=== PATIENT | female | born 1930 | race Caucasian/White ===

== ENCOUNTER 2018-07-10 12:48 | Inpatient (IN) | payer MEDICARE, OTHER ==
[2018-07-10 15:19] LABS: BASOPHILE ABSOLUTE 0.1 Th/cumm (0-0.2); EOSINOPHILE ABSOLUTE 0.3 Th/cmm (0.1-0.4); HEMATOCRIT 26.8 % (41.0-60); HEMOGLOBIN 8.7 gm/dL (12-16); MONOCYTE ABSOLUTE 0.9 Th/cmm (0.3-1.0)
[2018-07-10 15:41] LABS: % BASOPHILS 1.9 % (0.0-2.0); % EOSINOPHILS 4.3 % (0.0-5.0); % LYMPHOCYTES 24.3 % (20.0-50.0); % MONOCYTES 12.6 % (2.0-10.0); % NEUTROPHILS 56.9 % (40.0-80.0); LYMPHOCYTE ABSOLUTE 1.7 Th/cmm (1.5-3.0); MEAN CELL VOLUME 75.5 fl (81-100); MEAN CORPUSCULAR HEMOGLOBIN 24.5 pg (27.0-31.0); MEAN CORPUSCULAR HGB CONC 32.5 pg (28.0-36.0); NEUTROPHILE ABSOLUTE 3.9 Th/cmm (1.8-8.0); PLATELET COUNT 643 Th/cmm (150-400); RED BLOOD COUNT 3.56 Mil/cmm (3.80-5.20); RED CELL DISTRIBUTION WIDTH 16.9 % (11.5-20.0); WHITE BLOOD COUNT 6.9 Th/cmm (4.8-10.8)
[2018-07-10 15:55] LABS: ALB/GLOB RATIO 0.7 (1.0-1.8); ALBUMIN 3.3 gm/dL (3.7-5.3); ALKALINE PHOSPHATASE 79 U/L (34-104); ANION GAP 13.9 (7.0-16.0); BILIRUBIN,TOTAL 0.4 mg/dL (0.3-1.0); BUN - UREA NITROGEN 29 mg/dL (7-25); CALCIUM SERUM 8.9 mg/dL (8.6-10.3); CARBON DIOXIDE 27.1 mEq/L (21.0-31.0); CHLORIDE 92 mEq/L (98-107); CREATININE - SERUM 0.9 mg/dL (0.6-1.2); GLUCOSE 130 mg/dL (70-105); MAGNESIUM 1.9 mg/dL (1.9-2.7); PHOSPHOROUS 3.9 mg/dL (2.5-5.0); SGOT 24 U/L (13-39); SGPT/ALT 16 U/L (7-52); SODIUM SERUM 129 mEq/L (136-145)
[2018-07-10 16:48] LABS: ESR SEDIMENTATION SED RATE 145 mm/hr (0-30)
[2018-07-10] MEDS ORDERED: methylPREDNISolone SS 40 mg Vial ONE (17:08)
[2018-07-10 18:31] LABS: URINE SOURCE CATH
[2018-07-10 18:33] LABS: URINE BILIRUBIN NEGATIVE (NEGATIVE); URINE BLOOD LARGE (NEGATIVE); URINE GLUCOSE (UA) NEGATIVE (NEGATIVE); URINE KETONE NEGATIVE (NEGATIVE); URINE LEUKOCYTE ESTERASE LARGE (NEGATIVE); URINE MICROSCOPIC INDICATED? YES; URINE NITRATE POSITIVE (NEGATIVE); URINE PH 7.5 (4.6 - 8.0); URINE PROTEIN NEGATIVE (NEGATIVE); URINE UROBILINOGEN 0.2 E.U./dL (0.2 - 1.0)
[2018-07-10 18:40] LABS: URINE CLARITY CLOUDY (CLEAR); URINE COLOR YELLOW
[2018-07-10 18:41] LABS: URINE RBC 0-2 /hpf (0-5)
[2018-07-10 18:42] LABS: URINE BACTERIA MANY /hpf (NONE SEEN); URINE EPITHELIAL CELLS MODERATE /lpf (FEW)
[2018-07-10] MEDS ORDERED: Piperacillin Sodium/Tazobact 3.375 gm Vial IV ONE (18:56)
[2018-07-10] MEDS ORDERED: Dextrose 50% 50 mL Abboject IVP PRN (19:07)
[2018-07-10] MEDS ORDERED: GLUCAGON HCl 1 MG KIT IM PRN (19:07)
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
[2018-07-10] MEDS: Sodium Chloride 0.9% 1,000 ML IV SCH (22:04)
[2018-07-10] MEDS: INSULIN ASPART SLIDING SCALE 100 UNITS/ML UNIT SUBQ SCH (22:13)
[2018-07-10 22:28] VITALS: BP 123/69
[2018-07-11] MEDS ORDERED: Piperacillin Sodium/Tazobact 3.375 gm Vial IV ONE (04:30)
[2018-07-11] MEDS ORDERED: Albuterol Nebulizer 2.5mg/3mL HHN PRN (08:33)
[2018-07-11] MEDS ORDERED: Magnesium Hydroxide (MOM) 30 mL UDC PO PRN (08:33)
--- NOTE | 2018-07-11 08:46 | Diagnostic Imaging Report ---
Portable chest x-ray HISTORY: Shortness of breath The heart appears enlarged. Atherosclerotic calcification seen in the aorta. Generalized accentuation of the interstitial lung markings. The overall appearance suggests a chronic etiology. No focal processes. IMPRESSION: 1. Cardiomegaly with atherosclerotic vascular changes 2. Accentuation of the interstitial lung markings which appears chronic. No focal processes.
--- NOTE | 2018-07-11 08:50 | Diagnostic Imaging Report ---
Left first toe (3 views) HISTORY: Swelling Soft tissue swelling. Generalized osteoporosis. No definite acute abnormalities. No fractures. No definite plain radiographic evidence of osteomyelitis. Vascular calcification seen. IMPRESSION: 1. No definite acute focal bony abnormalities. Specifically, no definite plain radiographic evidence of osteomyelitis 2. Generalized osteoporosis 3. Extensive vascular calcification
--- NOTE | 2018-07-11 08:50 | Diagnostic Imaging Report ---
Right toes (3 views) HISTORY: Swelling Severe generalized osteoporosis. Evaluation of the joint space is limited due to flexion. No definite acute focal destructive bony changes. No fractures. Extensive vascular calcification noted. IMPRESSION: 1. No definite acute focal bony abnormalities 2. Severe generalized osteoporosis 3. Extensive vascular calcification
[2018-07-11] MEDS ORDERED: Non-Formulary Item 1 EA (Apixaban [Eliquis] 2.5 MG) PO SCH (09:00)
[2018-07-11] MEDS ORDERED: CALCIUM CARBONATE PO SCH (09:00)
[2018-07-11] MEDS ORDERED: [UNRECOGNIZED DRUG - OTHER] PO SCH (09:00)
[2018-07-11] MEDS ORDERED: VITAMIN D3 PO SCH (09:00)
--- NOTE | 2018-07-11 09:00 | History and Physical ---
History of Present Illness - HPI Chief Complaint: toe infection HPI: Patient was send from SNF for evaluation of toe infection. During ER evaluation was found UTI, Bilateral toe infection, and possible pneumonia. Vital Signs: Last Vital Signs Temp 97.7 F 07/11/18 05:00 Pulse 91 07/11/18 05:00 Resp 18 07/11/18 05:00 BP 124/67 07/11/18 05:00 Pulse Ox 100 07/11/18 05:00 Past Medical History Cardiovascular: Report: CAD Pulmonary: Report: COPD MANAGER OF HOSPITAL: Report: No Pertinent Hx GI: Report: No Pertinent Hx Psych: Report: No Pertinent Hx Musculoskeletal: Report: Weakness, Other (Fracture of left elbow and Fracture of left hip.) Rheumatologic: Report: No pertinent Hx Infectious Disease: Report: Other (Frequent UTI) Renal/: Report: No Pertinent Hx Endocrine: Report: Diabetes, Hypothyroidism Dermatology: Report: Cellulitis - Past Surgical History Past Surgical History: Other (Left elbow surgery repair, left hip fracture repair.) Family Medical History - Family Member Paternal Grandfather History Unknown: Yes Living Status: Hx Family Coronary Artery Disease: Yes Hx Family Stroke: Yes Social History Smoke: No Alcohol: None Drugs: None Lives: Custodial Domestic Violence: Negative - Medications Home Medications: Home Medication Medication Instructions Recorded Type Acetaminophen [Tylenol Extra 1,000 mg PO Q6HR PRN 07/10/18 History Strength] Acetaminophen [Tylenol] 650 mg PO Q6HR PRN 07/10/18 History Albuterol Nebulizer 2.5mg/3mL 2.5 mg IH Q4HR PRN 07/10/18 History [Albuterol Neb UD*] Apixaban [Eliquis] 2.5 mg PO BID 07/10/18 History Atorvastatin Calcium [Lipitor] 40 mg PO HS 07/10/18 History Bisacodyl [Dulcolax 10 Mg Supp] 10 mg RC DAILY PRN 07/10/18 History Calcium Carbonate/Vitamin D3 1 each PO DAILY 07/10/18 History [Calcium 500 + Vit D Caplet] Cyanocobalamin [Vitamin B12] 1,000 mcg PO DAILY 07/10/18 History Diltiazem HCl [Tiazac] 180 mg PO DAILY 07/10/18 History Fleet Enema 135 ml RC DAILY PRN 07/10/18 History Furosemide [Lasix] 40 mg PO BID 07/10/18 History Guaifenesin [Lisa-Tussin] 10 ml PO Q24H PRN 07/10/18 History Levothyroxine [Synthroid] 0.075 mg PO QDAC 07/10/18 History Loperamide [Imodium] 4 mg PO Q6H PRN 07/10/18 History Magnesium Hydroxide [Milk of 30 ml PO DAILY PRN 07/10/18 History Magnesia] Multivitamin [Theragran] 1 tab PO DAILY 07/10/18 History Potassium Chloride 1 cap PO DAILY 07/10/18 History - Allergies Allergies/Adverse Reactions: Allergies Allergy/AdvReac Type Severity Reaction Status Date / Time No Known Allergies Allergy Verified 07/10/18 13:51 Review of Systems - Review of Systems Constitutional: Report: Weakness Eyes: Report: No Significant ENT: Report: No Significant Respiratory: Report: Cough Cardiovascular: Report: No Significant Gastrointestinal: Report: No Significant Genitourinary: Report: No Significant Musculoskeletal: Report: Foot Pain Skin: Report: Other (Decubit ulcer) Neurological: Report: No Significant Physical Exam - Physical Exam HEENT: Report: Ears Nose Throat within normal limits Neck: Report: Within normal limits Cardiovascular Systems: Report: Regular, Rate and Rhythm Respiratory: Report: Crackles, Rhonchi Abdomen: Report: Non-tender to palpation Back: Report: Inspection of back is within normal limits. Extremities: Report: Other (Edema an redness of both toes.) Skin: Report: A wound was noted, Other (Left Decubit ulcer) - Lab Results All Lab Results last 24 hours: Laboratory Results - last 24 hr 07/10/18 07/10/18 07/10/18 15:10 15:10 15:10 WBC 6.9 RBC 3.56 L Hgb 8.7 L Hct 26.8 L MCV 75.5 L MCH 24.5 L MCHC Differential 32.5 RDW 16.9 Plt Count 643 H MPV 7.0 Neutrophils % 56.9 Lymphocytes % 24.3 Monocytes % 12.6 H Eosinophils % 4.3 Basophils % 1.9 ESR 145 H Sodium 129 L Potassium 4.0 Chloride 92 L Carbon Dioxide 27.1 Anion Gap 13.9 BUN 29 H Creatinine 0.9 Est GFR ( Amer) TNP Est GFR (Non-Af Amer) TNP BUN/Creatinine Ratio 32.2 Glucose 130 H POC Glucose Whole Bld Lactic Acid Calcium 8.9 Phosphorus 3.9 Magnesium 1.9 Total Bilirubin 0.4 AST 24 ALT 16 Alkaline Phosphatase 79 Total Protein 8.0 Albumin 3.3 L Globulin 4.7 Albumin/Globulin Ratio 0.7 L TSH 2.88 Urine Source Urine Color Urine Clarity Urine pH Ur Specific [place] Urine Protein Urine Glucose (UA) Urine Ketones Urine Blood Urine Nitrate Urine Bilirubin Urine Urobilinogen Ur Leukocyte Esterase Urine RBC Urine WBC Ur Epithelial Cells Urine Bacteria 07/10/18 07/10/18 07/10/18 15:10 17:51 21:07 WBC RBC Hgb Hct MCV MCH MCHC Differential RDW Plt Count MPV Neutrophils % Lymphocytes % Monocytes % Eosinophils % Basophils % ESR Sodium Potassium Chloride Carbon Dioxide Anion Gap BUN Creatinine Est GFR ( Amer) Est GFR (Non-Af Amer) BUN/Creatinine Ratio Glucose POC Glucose 335 H Whole Bld Lactic Acid 1.10 Calcium Phosphorus Magnesium Total Bilirubin AST ALT Alkaline Phosphatase Total Protein Albumin Globulin Albumin/Globulin Ratio TSH Urine Source CATH Urine Color YELLOW Urine Clarity CLOUDY H Urine pH 7.5 Ur Specific [place] 1.010 Urine Protein NEGATIVE Urine Glucose (UA) NEGATIVE Urine Ketones NEGATIVE Urine Blood LARGE H Urine Nitrate POSITIVE H Urine Bilirubin NEGATIVE Urine Urobilinogen 0.2 Ur Leukocyte Esterase LARGE H Urine RBC 0-2 Urine WBC 10-25 H Ur Epithelial Cells MODERATE Urine Bacteria MANY H 07/11/18 05:42 WBC RBC Hgb Hct MCV MCH MCHC Differential RDW Plt Count MPV Neutrophils % Lymphocytes % Monocytes % Eosinophils % Basophils % ESR Sodium Potassium Chloride Carbon Dioxide Anion Gap BUN Creatinine Est GFR ( Amer) Est GFR (Non-Af Amer) BUN/Creatinine Ratio Glucose POC Glucose 203 H Whole Bld Lactic Acid Calcium Phosphorus Magnesium Total Bilirubin AST ALT Alkaline Phosphatase Total Protein Albumin Globulin Albumin/Globulin Ratio TSH Urine Source Urine Color Urine Clarity Urine pH Ur Specific [place] Urine Protein Urine Glucose (UA) Urine Ketones Urine Blood Urine Nitrate Urine Bilirubin Urine Urobilinogen Ur Leukocyte Esterase Urine RBC Urine WBC Ur Epithelial Cells Urine Bacteria - Assessment Assessment: Patient is awake, alert, calm, in no acute distress. Dx: Cellulitis, Possible osteomyelitis, UTI, COPD, Anemia, Thrombocytosis, Hyponatremia, DM. - Plan Plan: Patient is in IV NS, IV AB, Wound care, contrinue with SNF meds, Consult with ID requested. Will continue to monitor.
[2018-07-11] MEDS: Diltiazem CD 180 mg C24 PO SCH (10:48)
[2018-07-11] MEDS: Multivitamin Tab PO SCH (10:50)
[2018-07-11] MEDS: INSULIN ASPART SLIDING SCALE 100 UNITS/ML UNIT SUBQ SCH (10:53)
[2018-07-11] MEDS: INSULIN LISPRO SLIDING SCALE 100 UNITS/ML UNIT SUBQ SCH ×3 (17:38→21:35)
[2018-07-11] MEDS: Albuterol Nebulizer 2.5mg/3mL HHN SCH ×5 (17:43→22:47)
[2018-07-12] MEDS: Albuterol Nebulizer 2.5mg/3mL HHN SCH ×6 (02:45→22:38)
[2018-07-12 08:12] LABS: HEMATOCRIT 23.9 % (41.0-60); MEAN CELL VOLUME 75.5 fl (81-100); MEAN CORPUSCULAR HEMOGLOBIN 24.5 pg (27.0-31.0); MEAN CORPUSCULAR HGB CONC 32.4 pg (28.0-36.0); MEAN PLATELET VOLUME 6.7 fl; PLATELET COUNT 490 Th/cmm (150-400); RED BLOOD COUNT 3.17 Mil/cmm (3.80-5.20); RED CELL DISTRIBUTION WIDTH 16.9 % (11.5-20.0)
[2018-07-12 08:18] LABS: HEMOGLOBIN 7.8 gm/dL (12-16)
[2018-07-12 08:24] LABS: ALB/GLOB RATIO 0.7 (1.0-1.8); ALBUMIN 2.7 gm/dL (3.7-5.3); ALKALINE PHOSPHATASE 76 U/L (34-104); ANION GAP 12.4 (7.0-16.0); BILIRUBIN,TOTAL 0.3 mg/dL (0.3-1.0); BUN - UREA NITROGEN 30 mg/dL (7-25); CALCIUM SERUM 8.3 mg/dL (8.6-10.3); CARBON DIOXIDE 27.9 mEq/L (21.0-31.0); CHLORIDE 95 mEq/L (98-107); CREATININE - SERUM 0.9 mg/dL (0.6-1.2); GLUCOSE 159 mg/dL (70-105); POTASSIUM SERUM 3.3 mEq/L (3.5-5.1); SGOT 15 U/L (13-39); SGPT/ALT 11 U/L (7-52); SODIUM SERUM 132 mEq/L (136-145); TOTAL PROTEIN,SERUM 6.4 gm/dL (6.0-8.3)
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
[2018-07-12] MEDS: INSULIN LISPRO SLIDING SCALE 100 UNITS/ML UNIT SUBQ SCH ×4 (09:35→21:13)
[2018-07-12] MEDS: Diltiazem CD 180 mg C24 PO SCH (09:48)
[2018-07-12] MEDS: Multivitamin Tab PO SCH (09:48)
[2018-07-12] MEDS: Levothyroxine 0.075 Mg Tab PO SCH (09:48)
[2018-07-12 10:09] LABS: BAND NEUTROPHILE 3 % (0-10); BASOPHIL 0 % (0-3); EOSINOPHIL 1 % (0-5); LYMPHOCYTE 8 % (20-50); MONOCYTE 4 % (2-10); NEUTROPHILS 84 % (40-80)
[2018-07-12 10:10] LABS: HYPOCHROMIA 2+; PLATELET ESTIMATE INCREASED PLATELETS (NORMAL)
[2018-07-12 10:11] LABS: ANISOCYTOSIS 1+
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
[2018-07-13] MEDS: Albuterol Nebulizer 2.5mg/3mL HHN SCH ×6 (02:27→23:10)
[2018-07-13 05:53] LABS: HEMATOCRIT 24.6 % (41.0-60); MEAN CORPUSCULAR HEMOGLOBIN 24.1 pg (27.0-31.0); MEAN CORPUSCULAR HGB CONC 31.8 pg (28.0-36.0); MEAN PLATELET VOLUME 6.9 fl; PLATELET COUNT 535 Th/cmm (150-400); RED BLOOD COUNT 3.23 Mil/cmm (3.80-5.20); RED CELL DISTRIBUTION WIDTH 17.4 % (11.5-20.0); WHITE BLOOD COUNT 6.7 Th/cmm (4.8-10.8)
[2018-07-13 06:00] LABS: HEMOGLOBIN 7.8 gm/dL (12-16)
[2018-07-13 06:08] LABS: ALB/GLOB RATIO 0.8 (1.0-1.8); ALBUMIN 2.8 gm/dL (3.7-5.3); ALKALINE PHOSPHATASE 69 U/L (34-104); BILIRUBIN,TOTAL 0.3 mg/dL (0.3-1.0); BUN - UREA NITROGEN 24 mg/dL (7-25); CALCIUM SERUM 8.4 mg/dL (8.6-10.3); CARBON DIOXIDE 26.6 mEq/L (21.0-31.0); CHLORIDE 98 mEq/L (98-107); CREATININE - SERUM 0.9 mg/dL (0.6-1.2); GLUCOSE 158 mg/dL (70-105); POTASSIUM SERUM 3.6 mEq/L (3.5-5.1); SGOT 16 U/L (13-39); SGPT/ALT 12 U/L (7-52); SODIUM SERUM 132 mEq/L (136-145); TOTAL PROTEIN,SERUM 6.5 gm/dL (6.0-8.3)
[2018-07-13 07:35] LABS: BAND NEUTROPHILE 1 % (0-10); BASOPHIL 0 % (0-3); EOSINOPHIL 5 % (0-5); LYMPHOCYTE 29 % (20-50); MONOCYTE 14 % (2-10); NEUTROPHILS 51 % (40-80)
[2018-07-13 07:36] LABS: PLATELET ESTIMATE INCREASED PLATELETS (NORMAL)
[2018-07-13] MEDS: Levothyroxine 0.075 Mg Tab PO SCH (08:35)
[2018-07-13] MEDS: Multivitamin Tab PO SCH (08:35)
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
--- NOTE | 2018-07-13 08:55 | Diagnostic Imaging Report ---
Renal ultrasound HISTORY: Hydronephrosis, pyelonephritis. COMPARISON: None Technique: Sonography of the kidneys and urinary bladder was performed in multiple planes. FINDINGS: The right kidney measures 9.3 x 4.4 cm. No evidence of focal lesions or hydronephrosis. The left kidney measures 7.9 x 4.7 cm. The renal margins are not well-defined, however, no evidence of focal lesions or hydronephrosis. There is mild increased echogenicity of the kidneys. A Smith catheter is noted within underdistended urinary bladder, limiting its evaluation. IMPRESSION: No evidence of hydronephrosis. Mild increased echogenicity of the kidneys which may be due to medical renal disease.
[2018-07-13] MEDS: INSULIN LISPRO SLIDING SCALE 100 UNITS/ML UNIT SUBQ SCH ×5 (09:03→21:09)
--- NOTE | 2018-07-13 09:03 | Diagnostic Imaging Report ---
Bilateral lower extremity arterial Doppler study HISTORY: Peripheral arterial disease COMPARISON: None Technique: Longitudinal and transverse sonographic images of the bilateral lower extremity arteries were obtained with doppler analysis. FINDINGS: Exam of the right lower extremity demonstrates generalized biphasic flow with moderate atherosclerotic vascular disease. Decreased velocities seen distally within the right dorsalis pedis artery. Right SHANTHI is 1.1 Exam of the left side demonstrates triphasic and biphasic flow with biphasic flow primarily seen distally with decreased velocity the left dorsalis pedis artery at 14.1 cm/second. Moderate atherosclerotic vascular disease is noted. Left SHANTHI is 1.3. IMPRESSION: Moderate generalized atherosclerotic vascular disease. No sonographic evidence of occlusion. Please correlate clinically.
[2018-07-13] MEDS: Diltiazem CD 180 mg C24 PO SCH ×2 (09:04→17:51)
--- NOTE | 2018-07-13 09:08 | Diagnostic Imaging Report ---
Nuclear medicine bone scan History: Osteomyelitis of the toes Comparison: Bilateral toe x-rays on 07/10/2018 Technique/procedure: 26.1 minutes of technetium 99 MDP was administered intravenously. Flow, blood pool, and delayed images of bilateral lower extremities were obtained. Flow images demonstrate mild increased uptake throughout the right foot with more focalized increased uptake seen along the bilateral forefoot regions. Blood flow images also demonstrate more focalized uptake along the bilateral forefoot regions. Delayed images demonstrate slight uptake along the bilateral forefoot regions. IMPRESSION: Areas of uptake seen on flow and blood pole images along the bilateral forefoot regions/toes. There is also slight delayed uptake, however this is equivocal. There is probable cellulitis in this region. Osteomyelitis is less likely but cannot be completely excluded. If there is continued clinical concern for osteomyelitis MRI of this region is recommended.
[2018-07-13] MEDS: Sodium Chloride 0.9% 1,000 ML IV SCH (19:30)
[2018-07-14] MEDS: Albuterol Nebulizer 2.5mg/3mL HHN SCH ×6 (03:09→23:43)
[2018-07-14 05:55] LABS: BASOPHILE ABSOLUTE 0.1 Th/cumm (0-0.2); EOSINOPHILE ABSOLUTE 0.6 Th/cmm (0.1-0.4); HEMATOCRIT 24.3 % (41.0-60); LYMPHOCYTE ABSOLUTE 1.7 Th/cmm (1.5-3.0); MEAN CELL VOLUME 75.6 fl (81-100); MEAN CORPUSCULAR HEMOGLOBIN 24.9 pg (27.0-31.0); MEAN CORPUSCULAR HGB CONC 32.9 pg (28.0-36.0); MEAN PLATELET VOLUME 7.4 fl; MONOCYTE ABSOLUTE 1.6 Th/cmm (0.3-1.0); NEUTROPHILE ABSOLUTE 3.9 Th/cmm (1.8-8.0); PLATELET COUNT 403 Th/cmm (150-400); RED BLOOD COUNT 3.21 Mil/cmm (3.80-5.20); WHITE BLOOD COUNT 7.9 Th/cmm (4.8-10.8)
[2018-07-14] MEDS: Levothyroxine 0.075 Mg Tab PO SCH (06:56)
[2018-07-14] MEDS: INSULIN LISPRO SLIDING SCALE 100 UNITS/ML UNIT SUBQ SCH ×2 (06:57→21:24)
[2018-07-14 07:58] LABS: BAND NEUTROPHILE 2 % (0-10); NEUTROPHILS 63 % (40-80)
[2018-07-14 07:59] LABS: BASOPHIL 0 % (0-3); EOSINOPHIL 0 % (0-5); LYMPHOCYTE 25 % (20-50); MONOCYTE 10 % (2-10)
[2018-07-14 08:25] LABS: ALB/GLOB RATIO 0.8 (1.0-1.8); ALBUMIN 2.8 gm/dL (3.7-5.3); ALKALINE PHOSPHATASE 63 U/L (34-104); ANION GAP 12.7 (7.0-16.0); BILIRUBIN,TOTAL 0.3 mg/dL (0.3-1.0); BUN - UREA NITROGEN 16 mg/dL (7-25); CALCIUM SERUM 8.3 mg/dL (8.6-10.3); CARBON DIOXIDE 24.7 mEq/L (21.0-31.0); CHLORIDE 98 mEq/L (98-107); CREATININE - SERUM 0.8 mg/dL (0.6-1.2); GLUCOSE 136 mg/dL (70-105); POTASSIUM SERUM 3.4 mEq/L (3.5-5.1); SGOT 15 U/L (13-39); SGPT/ALT 10 U/L (7-52); SODIUM SERUM 132 mEq/L (136-145); TOTAL PROTEIN,SERUM 6.3 gm/dL (6.0-8.3)
[2018-07-14] MEDS ORDERED: KCL 20mEq/100mL Premix 20 MEQ/100 ML PIGGYBACK IV ONE (08:46)
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
[2018-07-14] MEDS: Diltiazem CD 180 mg C24 PO SCH (09:30)
[2018-07-14] MEDS: Multivitamin Tab PO SCH (10:17)
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
[2018-07-14] MEDS: Sodium Chloride 0.9% 1,000 ML IV SCH (23:19)
[2018-07-15] MEDS: Albuterol Nebulizer 2.5mg/3mL HHN SCH ×6 (03:00→22:52)
[2018-07-15 06:37] LABS: % BASOPHILS 1.9 % (0.0-2.0); % EOSINOPHILS 8.1 % (0.0-5.0); % MONOCYTES 14.1 % (2.0-10.0); % NEUTROPHILS 52.9 % (40.0-80.0); BASOPHILE ABSOLUTE 0.1 Th/cumm (0-0.2); EOSINOPHILE ABSOLUTE 0.6 Th/cmm (0.1-0.4); HEMATOCRIT 25.4 % (41.0-60); HEMOGLOBIN 8.3 gm/dL (12-16); LYMPHOCYTE ABSOLUTE 1.6 Th/cmm (1.5-3.0); MEAN CELL VOLUME 74.7 fl (81-100); MEAN CORPUSCULAR HEMOGLOBIN 24.3 pg (27.0-31.0); MEAN CORPUSCULAR HGB CONC 32.6 pg (28.0-36.0); MEAN PLATELET VOLUME 6.8 fl; NEUTROPHILE ABSOLUTE 3.6 Th/cmm (1.8-8.0); PLATELET COUNT 503 Th/cmm (150-400); RED CELL DISTRIBUTION WIDTH 17.1 % (11.5-20.0); WHITE BLOOD COUNT 6.9 Th/cmm (4.8-10.8)
[2018-07-15] MEDS: INSULIN LISPRO SLIDING SCALE 100 UNITS/ML UNIT SUBQ SCH ×4 (06:43→20:23)
[2018-07-15] MEDS: Levothyroxine 0.075 Mg Tab PO SCH (06:44)
[2018-07-15 06:51] LABS: ALB/GLOB RATIO 0.8 (1.0-1.8); ALBUMIN 2.8 gm/dL (3.7-5.3); ALKALINE PHOSPHATASE 62 U/L (34-104); ANION GAP 11.1 (7.0-16.0); BILIRUBIN,TOTAL 0.4 mg/dL (0.3-1.0); BUN - UREA NITROGEN 19 mg/dL (7-25); CALCIUM SERUM 8.4 mg/dL (8.6-10.3); CARBON DIOXIDE 27.5 mEq/L (21.0-31.0); CHLORIDE 98 mEq/L (98-107); CREATININE - SERUM 0.9 mg/dL (0.6-1.2); GLUCOSE 122 mg/dL (70-105); POTASSIUM SERUM 3.6 mEq/L (3.5-5.1); SGOT 18 U/L (13-39); SGPT/ALT 11 U/L (7-52); SODIUM SERUM 133 mEq/L (136-145); TOTAL PROTEIN,SERUM 6.3 gm/dL (6.0-8.3)
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
[2018-07-15] MEDS: Diltiazem CD 180 mg C24 PO SCH (09:12)
[2018-07-15] MEDS: Multivitamin Tab PO SCH (09:13)
--- NOTE | 2018-07-15 11:25 | Discharge Summary ---
General Discharge Summary - Discharge Summary Date of Admission: 07/10/18 Admitting Diagnosis: Bilateral toe infection, UTI, Possible PNA Discharge Date: 07/15/18 Discharge Diagnosis: Cellulitis of toe, UTI, COPD, PVD, Anemia, Thrombocytosis, Hyponatremia, DM Laboratory Findings: Laboratory Results - last 24 hr 07/14/18 07/14/18 07/14/18 11:44 17:04 18:39 WBC RBC Hgb Hct MCV MCH MCHC Differential RDW Plt Count MPV Neutrophils % Lymphocytes % Monocytes % Eosinophils % Basophils % Sodium Potassium Chloride Carbon Dioxide Anion Gap BUN Creatinine Est GFR ( Amer) Est GFR (Non-Af Amer) BUN/Creatinine Ratio Glucose POC Glucose 177 H 242 H 164 H Calcium Total Bilirubin AST ALT Alkaline Phosphatase Total Protein Albumin Globulin Albumin/Globulin Ratio 07/14/18 07/15/18 07/15/18 21:19 06:05 06:05 WBC 6.9 RBC 3.40 L Hgb 8.3 L Hct 25.4 L MCV 74.7 L MCH 24.3 L MCHC Differential 32.6 RDW 17.1 Plt Count 503 H MPV 6.8 Neutrophils % 52.9 Lymphocytes % 23.0 Monocytes % 14.1 H Eosinophils % 8.1 H Basophils % 1.9 Sodium 133 L Potassium 3.6 Chloride 98 Carbon Dioxide 27.5 Anion Gap 11.1 BUN 19 Creatinine 0.9 Est GFR ( Amer) TNP Est GFR (Non-Af Amer) TNP BUN/Creatinine Ratio 21.1 Glucose 122 H POC Glucose 180 H Calcium 8.4 L Total Bilirubin 0.4 AST 18 ALT 11 Alkaline Phosphatase 62 Total Protein 6.3 Albumin 2.8 L Globulin 3.5 Albumin/Globulin Ratio 0.8 L 07/15/18 06:43 WBC RBC Hgb Hct MCV MCH MCHC Differential RDW Plt Count MPV Neutrophils % Lymphocytes % Monocytes % Eosinophils % Basophils % Sodium Potassium Chloride Carbon Dioxide Anion Gap BUN Creatinine Est GFR ( Amer) Est GFR (Non-Af Amer) BUN/Creatinine Ratio Glucose POC Glucose 113 H Calcium Total Bilirubin AST ALT Alkaline Phosphatase Total Protein Albumin Globulin Albumin/Globulin Ratio Hospital Course: Patient responded to treatment infection improved, respiration improved, anemia stable, Hyponatremia and thrombocytosis improved. Treatment: Patient received IV NS, IV AB, continue with SNF Meds. Patient was follow by ID. Patient was transferred to [facility] to continue with treatment. Condition at Discharge: Stable Disposition: Other Care (other hosp) Home Medications: Home Medication Medication Instructions Recorded Type Acetaminophen [Tylenol Extra 1,000 mg PO Q6HR PRN 07/10/18 History Strength] Acetaminophen [Tylenol] 650 mg PO Q6HR PRN 07/10/18 History Albuterol Nebulizer 2.5mg/3mL 2.5 mg IH Q4HR PRN 07/10/18 History [Albuterol Neb UD*] Apixaban [Eliquis] 2.5 mg PO BID 07/10/18 History Atorvastatin Calcium [Lipitor] 40 mg PO HS 07/10/18 History Bisacodyl [Dulcolax 10 Mg Supp] 10 mg RC DAILY PRN 07/10/18 History Calcium Carbonate/Vitamin D3 1 each PO DAILY 07/10/18 History [Calcium 500 + Vit D Caplet] Cyanocobalamin [Vitamin B12] 1,000 mcg PO DAILY 07/10/18 History Diltiazem HCl [Tiazac] 180 mg PO DAILY 07/10/18 History Fleet Enema 135 ml RC DAILY PRN 07/10/18 History Furosemide [Lasix] 40 mg PO BID 07/10/18 History Guaifenesin [Lisa-Tussin] 10 ml PO Q24H PRN 07/10/18 History Levothyroxine [Synthroid] 0.075 mg PO QDAC 07/10/18 History Loperamide [Imodium] 4 mg PO Q6H PRN 07/10/18 History Magnesium Hydroxide [Milk of 30 ml PO DAILY PRN 07/10/18 History Magnesia] Multivitamin [Theragran] 1 tab PO DAILY 07/10/18 History Potassium Chloride 1 cap PO DAILY 07/10/18 History Inpatient Medications: Current Medications Acetaminophen (Tylenol) 650 mg PO Q6HR PRN PRN Reason: Pain (Mild) Stop: 09/09/18 08:32 Last Admin: 07/14/18 21:58 Dose: 650 mg Albuterol Sulfate (Albuterol 2.5mg/3ml Neb Ud) 2.5 mg HHN Q4HRT [facility] Stop: 09/09/18 08:59 Last Admin: 07/15/18 07:40 Dose: 2.5 mg Atorvastatin Calcium (Lipitor) 40 mg PO HS [facility] Stop: 09/09/18 20:59 Last Admin: 07/14/18 21:24 Dose: 40 mg Bisacodyl (Dulcolax 10 Mg Supp) 10 mg RC DAILY PRN PRN Reason: IF MOM INEFFECTIVE Stop: 09/09/18 08:32 Cyanocobalamin (Vitamin B12) 1,000 mcg PO DAILY [facility] Stop: 09/09/18 08:59 Last Admin: 07/15/18 09:13 Dose: 1,000 mcg Dextrose (D50w) 50 ml IVP PRN PRN PRN Reason: BS below 70 & not tolerate po Stop: 09/08/18 19:06 Dextrose (Glutose 40%) 18.75 gm PO PRN PRN PRN Reason: Blood Glucose less than 70 Stop: 09/08/18 19:06 Diltiazem HCl (Cardizem Cd) 180 mg PO DAILY [facility] Stop: 09/09/18 08:59 Last Admin: 07/15/18 09:12 Dose: 180 mg Furosemide (Lasix) 40 mg PO BID [facility] Stop: 09/09/18 08:59 Last Admin: 07/15/18 09:13 Dose: 40 mg Glucagon (Glucagen) 1 mg IM PRN PRN PRN Reason: Blood Glucose less than 70 Stop: 09/08/18 19:06 Sodium Chloride (Nacl 0.9%) 1,000 mls @ 70 mls/hr IV .[id number] [facility] Stop: 09/08/18 19:14 Last Admin: 07/14/18 23:19 Dose: 70 mls/hr Piperacillin Sod/Tazobactam (Sod 3.375 gm/ Sodium Chloride) 50 mls @ 100 mls/ hr IV Q8HR [facility] Stop: 09/08/18 20:59 Last Admin: 07/15/18 05:00 Dose: 50 mls/hr Vancomycin HCl 1 gm/ Sodium (Chloride) 250 mls @ 165 mls/hr IV Q24H [facility] Stop: 09/09/18 08:59 Last Infusion: 07/14/18 16:27 Dose: Infused Insulin Human Lispro (Humalog Insulin Sliding Scale) 0 units SUBQ ACHS [facility]; Protocol Stop: 09/08/18 11:29 Last Admin: 07/15/18 06:43 Dose: Not Given Levothyroxine Sodium (Synthroid) 0.075 mg PO QDAC [facility] Stop: 09/10/18 07:29 Last Admin: 07/15/18 06:44 Dose: 0.075 mg Magnesium Hydroxide (Milk Of Magnesia) 30 ml PO DAILY PRN PRN Reason: Constipation Stop: 09/09/18 08:32 Miscellaneous (Vancomycin Iv Per Pharmacy) 1 ea MC PRN PRN PRN Reason: PROTOCOL Stop: 09/09/18 08:59 Miscellaneous (Clinical Monitoring) 1 ea MC DAILY PRN PRN Reason: RENAL DOSING- XARELTO Stop: 09/12/18 16:44 Multivitamins/Vitamin C (Theragran) 1 tab PO DAILY [facility] Stop: 09/09/18 08:59 Last Admin: 07/15/18 09:13 Dose: 1 tab Rivaroxaban (Xarelto) 10 mg PO DAILY [facility] Stop: 09/12/18 16:59 Last Admin: 07/15/18 09:13 Dose: 10 mg Activity: Bed Rest Consults and Follow-Up: DIANE YAO [Other] not on staff,PCP is [Primary Care Provider] - Consulting Speciality: Other (ID and vascular surgeon.)
== END 2018-07-16 00:10 | DRG 602 ==
LOC: ER 12:48 → MSI 20:32 → TELE 07-13
PROVIDERS: ADMIT General Practice; ATTEND General Practice
DX: L03.032 Cellulitis of left toe (principal); E41 Nutritional marasmus; N39.0 Urinary tract infection, site not specified; E87.1 Hypo-osmolality and hyponatremia; L03.116 Cellulitis of left lower limb; E44.1 Mild protein-calorie malnutrition; E11.51 Type 2 diabetes mellitus with diabetic peripheral angiopathy without gangrene; E11.621 Type 2 diabetes mellitus with foot ulcer; J44.9 Chronic obstructive pulmonary disease, unspecified; D47.3 Essential (hemorrhagic) thrombocythemia; L89.892 Pressure ulcer of other site, stage 2; D64.9 Anemia, unspecified; I25.10 Atherosclerotic heart disease of native coronary artery without angina pectoris; E03.9 Hypothyroidism, unspecified; I48.91 Unspecified atrial fibrillation; F03.90 Unspecified dementia, unspecified severity, without behavioral disturbance, psychotic disturbance, mood disturbance, and anxiety; R13.10 Dysphagia, unspecified; R31.9 Hematuria, unspecified; E78.5 Hyperlipidemia, unspecified; E11.649 Type 2 diabetes mellitus with hypoglycemia without coma; Z82.49 Family history of ischemic heart disease and other diseases of the circulatory system; Z82.3 Family history of stroke; Z68.21 Body mass index [BMI] 21.0-21.9, adult
CPT/HCPCS: 36415-UA; 71045-TC; 73660-TC-T5; 73660-TC-TA; 76770-TC; 78315-TC; 80053-TC; 80202-TC; 81001-TC; 82948-90; 83605; 83735-TC; 84100-TC; 84443-TC; 85007-TC; 85025-TC; 85652-TC; 87070-90; 87086-90; 93925-TC; 94640; 94760; 96375; A4217; A9503; J1815; J2543; J2920; J3370; J3480; J7030; J7040; J7042; J7613; Z7610